=== PATIENT | male | born 2000 | race Caucasian/White ===

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

== ENCOUNTER 2024-07-01 11:57 | Emergency (ER) | payer BC ==
[~2024-07-01] VITALS: Ht 175.3 cm; Wt 81.8 kg
[2024-07-01 13:56] VITALS: BP 134/82
== END 2024-07-01 13:58 | disposition home or self-care (01) ==
LOC: ED 11:57
DX: S81.811A Laceration without foreign body, right lower leg, initial encounter (principal); S81.812A Laceration without foreign body, left lower leg, initial encounter; W23.0XXA Caught, crushed, jammed, or pinched between moving objects, initial encounter; Y92.096 Garden or yard of other non-institutional residence as the place of occurrence of the external cause